=== PATIENT | female | born 1935 | race Caucasian/White ===

== ENCOUNTER → 2016-09-09 | Day surgery (SDC) | payer MEDICARE ==
[~2016-09-09] MED LIST: AMLO2.5T PO; ARIC5TAB PO; CANA100T; CARB25TA PO; GLIM2TAB PO; HYDR12.56 PO; JANU100T PO; LACTATED RINGER'S 1000 ML INJ 1,000 ML ONE; LOSA25TA31 PO; MEGE20TA PO; MEMA10 PO; ONABOTULINUMTOXINA INJ 100 UNITS/VIAL ONE; PRAV20TA67 PO; PROPOFOL 200 MG/20 ML AMP IV ONE; PROT40TA PO; SODIUM CHLORIDE 0.9% INJ 10 ML ONE
--- NOTE | 2016-09-09 10:09 | GIPROC ---
[facility] [address] [facility], [id number] EGD WITH DILATION PROCEDURE REPORT EXAM DATE: 09/09/2016 PATIENT NAME: Jean-Paul De Oliveira MR#: [id number] BIRTHDATE: 1935 ATTENDING: Angela Guan MD ORDER #: [id number] LOAN UNDERWRITER: STATUS: outpatient INDICATIONS: The patient is a 81 yr old female here for an EGD with dilation due to achalasia, dysphagia PROCEDURE PERFORMED: EGD w/ biopsy EGD w/ directed submucosal injection(s), any substance Panendoscopy with biopsy MEDICATIONS: None and Per Anesthesia. TOPICAL ANESTHETIC: none CONSENT: The patient understands the risks and benefits of the procedure and understands that these risks include, but are not limited to: sedation, allergic reaction, infection, perforation and/or bleeding. Alternative means of evaluation and treatment include, among others: physical exam, x-rays, and/or surgical intervention. The patient elects to proceed with this endoscopic procedure. medical equipment was checked for proper function. Hand hygiene and appropriate measures for infection prevention was taken. After the risks, benefits and alternatives of the procedure were thoroughly explained, Informed consent was verified, confirmed and timeout was successfully executed by the treatment team. The patient was anesthetized with topical anesthesia and the EG-[id number] ([id number]) endoscope was introduced through the mouth and advanced to the second portion of the duodenum. The instrument was slowly withdrawn as the mucosa was fully examined. Duodenitis second portion-biopsy gastritis antrum-biopsy thick fold antrum-biopsy tight eg junction. BOTOX injected 100 units at eg junction -25 units in each quadrant. Dilation was performed at gastroesophageal junction. DILATOR: SIZE(S): RESISTANCE: HEME: APPEARANCE: Dilator: Savary over guidewire Size(s): 16 COMMENT: Retroflexed views revealed a hiatal hernia ADVERSE EVENTS: There were no complications. IMPRESSIONS: 1. Duodenitis second portion-biopsy gastritis antrum-biopsy thick fold antrum-biopsy tight eg junction 2. Retroflexed views revealed a hiatal hernia RECOMMENDATIONS: 1. Continue PPI 2. Avoid NSAIDS 3. Anti-reflux regimen REPEAT EXAM: EGD pending biopsy results Angela Guan MD eSigned: Angela Guan MD 09/09/2016 10:09 AM cc: [place] [facility] [place] PATIENT NAME: Jean-Paul De Oliveira MR#: [id number]
== END | disposition home or self-care (01) ==
LOC: ESDC 07:49
PROVIDERS: ATTEND Internal Medicine Gastroenterology
DX: K22.0 Achalasia of cardia (principal); R13.10 Dysphagia, unspecified; K29.80 Duodenitis without bleeding; K29.70 Gastritis, unspecified, without bleeding; K22.2 Esophageal obstruction
CPT/HCPCS: 00740; 43236; 43239; 88305; 88312; J0585; J7120